=== PATIENT | male | born 1945 | race Caucasian/White ===

== ENCOUNTER 2016-12-17 07:46 | Day surgery (SDC) | payer MEDICARE, OTHER ==
[~2016-12-17 07:46] MED LIST: EPINEPHrine 1:10,000 1 MG/10 ML Syringe ONE; Propofol 200 MG/20 ML SDV ONE
[2016-12-17] MEDS ORDERED: Lactated Ringers 1,000 ML IV SCH (08:00)
[2016-12-17] MEDS ORDERED: Sodium Chloride 0.9% 5 ML Syringe FLUSH PRN (08:00)
[2016-12-17] MEDS ORDERED: Lactated Ringers 1,000 ML ONE (08:31)
[2016-12-17] MEDS ORDERED: Propofol 200 MG/20 ML SDV ONE ×2 (08:31→09:03)
[2016-12-17] MEDS ORDERED: ePHEDrine 50 MG/ML SDV IV ONE (09:03)
[2016-12-17] MEDS ORDERED: ePHEDrine 50 MG/ML SDV ONE (09:03)
[2016-12-17] MEDS ORDERED: Sodium Chloride 0.9% 1,000 ML IV ONE (09:03)
--- NOTE | 2016-12-17 09:56 | PCM.OPNOTE ---
- General Post-Op/Procedure Note Date of Surgery/Procedure: 12/17/16 Operative Procedure(s): Upper and lower GI endoscopy. Anesthesia Technique: MAC Primary Surgeon: Magnolia Godinez Complications: None Condition: Good Free Text/Narrative:: INFORMED CONSENT: Patient is here today for elective upper GI endoscopy. All aspects of this procedure have been discussed with the patient. All possible complications also, including possibility of perforation, infection, pain, bleeding, numbness of the throat, swallowing difficulty and unknown complications. In the event of perforation the patient may need surgical exploration to repair the defect. The patient understands fully well. Patient did not have any further questions for me at the end of my interview. The patient wishes for me to proceed. INSTRUMENT USED: Video gastroscope ANESTHESIA: [MAC] ASA CLASSIFICATION: [2] PROCEDURE PERFORMED: [upper GI endoscopy] PHARYNX: Normal. ESOPHAGUS: Normal. Proximal: Normal. Middle: Normal. Lower: Normal. GE Junction: Normal. STOMACH: Normal. Cardia: A moderate size hiatal hernia without inflammation or changes of reflux was observed. Fundus: Normal. Lesser Curvature: Normal. Greater Curvature: Normal. Antrum: Normal. Pylorus: Normal. DUODENUM: Normal. First Part: Normal. Second Part: Normal. Third Part: Normal. RETROFLEXION: Normal. BIOPSY: None. TOLERANCE: Excellent. COMPLICATIONS: None. INFORMED CONSENT: Patient is here today for elective colonoscopy. All aspects of this procedure have been discussed with the patient. All possible complications also, including possibility of perforation, infection, pain, bleeding and unknown complications. In the event of perforation patient may need to have abdominal exploration, colon resection, colostomy and even was discussed. Anesthetic complications were handled by anesthesia department. The patient understands fully well. Patient did not have any further questions for me at the end of my interview. The patient wishes for me to proceed. PREOPERATIVE DIAGNOSIS/INDICATIONS: [persistent right lower quadrant pain and rectal] POSTOPERATIVE DIAGNOSIS: [Possible colitis of the cecum and a redundant colon] INSTRUMENT USED: [employer] videocolonoscope. ASA CLASSIFICATION: [2] ANESTHESIA: Continuous EKG, oximetry and intermittent blood pressure and respiratory monitoring were performed throughout the procedure. IV Versed and Fentanyl were administered. PROCEDURE PERFORMED: Colonoscopy POSITIONS OF PATIENT: Left lateral. RECTUM: Normal. SIGMOID COLON: Normal. DESCENDING COLON: Normal. SPLENIC FLEXURE: Normal. TRANSVERSE COLON: Normal. HEPATIC FLEXURE: Normal. ASCENDING COLON: Normal. CECUM: the mucosa was generally inflamed. Biopsies were taken using the cold biopsy forceps.. ILEOCECAL VALVE: Normal. BIOPSY: None. TOLERANCE: Excellent. COMPLICATIONS: None.
[2016-12-17 11:33] VITALS: BP 143/79
== END 2016-12-17 11:20 | disposition home or self-care (01) ==
LOC: KA.SDS 07:46
PROVIDERS: ATTEND Family Medicine
DX: K44.9 Diaphragmatic hernia without obstruction or gangrene (principal); K55.9 Vascular disorder of intestine, unspecified; K21.9 Gastro-esophageal reflux disease without esophagitis; E03.9 Hypothyroidism, unspecified; I10 Essential (primary) hypertension; Z79.82 Long term (current) use of aspirin; Z79.899 Other long term (current) drug therapy; Z98.890 Other specified postprocedural states
CPT/HCPCS: 43235; 45380; J2704; J7030; J7120; 00740; 00810; 88305

== ENCOUNTER 2017-01-22 02:35 | Inpatient (IN) | payer MEDICARE, OTHER, MEDICAID ==
[2017-01-22] MEDS ORDERED: Sodium Chloride 0.9% 5 ML Syringe FLUSH PRN (03:05)
[2017-01-22] MEDS ORDERED: Sodium Chloride 0.9% 1,000 ML IV STA (03:05)
[2017-01-22] MEDS ORDERED: Morphine 2 MG/ML Syringe IVPUSH ONE (03:07)
--- NOTE | 2017-01-22 03:15 | EDM.PDOC ---
ED HPI GI/ABDOMINAL - General Chief Complaint: Abdominal Pain Stated Complaint: abd pain Time Seen by Provider: 01/22/17 03:00 Source of Information: Reports: Patient, EMS History Limitations: Reports: No limitations - History of Present Illness INITIAL COMMENTS - FREE TEXT/NARRATIVE: PT STATES HE HAS BEEN HAVING INTERMITTENT ABD PAIN AND BLACK STOOLS FOR A FEW WEEKS. BECAME WORSE DURING NIGHT AND CONTACTED EMS. DENIES N/V, TRAUMA, OR CP. H /O COPD AND CHRONIC SOB. Timing/Duration: Reports: Intermittent Location: generalized Quality: Reports: ache, other (SHARP) Associated Symptoms: Reports: constipation. Denies: back pain, testicular pain , groin pain, diarrhea, nausea/vomiting - Related Data Allergies/ADRs: Allergies Allergy/AdvReac Type Severity Reaction Status Date / Time No Known Drug Allergies Allergy Cannot Verified 01/22/17 04:09 Remember Home Meds: Home Meds Albuterol/Ipratropium [DuoNeb 3.0-0.5 MG/3 ML] 3 ml INH TID 07/27/16 [History] Ferrous Gluconate 1 tab PO DAILY 07/27/16 [History] Levothyroxine [Synthroid] 200 mcg PO ACBREAKFAST 07/27/16 [History] Mirtazapine [Remeron] 45 mg PO BEDTIME 07/27/16 [History] Multivitamin [Daily Multiple Vitamin] 1 tab PO DAILY 07/27/16 [History] Omeprazole 40 mg PO DAILY 07/27/16 [History] Oxybutynin Chloride [Ditropan Xl] 15 mg PO DAILY 07/27/16 [History] Sertraline [Zoloft] 200 mg PO DAILY 07/27/16 [History] Tamsulosin [Flomax] 0.4 mg PO DAILY 07/27/16 [History] Aspirin 81 mg PO BRK 08/14/16 [History] Metoprolol Tartrate 12.5 mg PO BID 08/14/16 [History] Mupirocin Oint [Bactroban Oint] 22 gm TOP TID 08/14/16 [History] atorvaSTATin [Lipitor] 20 mg PO BEDTIME 08/14/16 [History] Acetaminophen 1,000 mg PO Q4H PRN 12/16/16 [History] Apixaban [Eliquis] 5 mg PO BID 12/16/16 [History] Magnesium Hydroxide [Milk of Magnesia] 15 ml PO BID PRN 12/16/16 [History] Sennosides/Docusate Sodium [Sennosides-Docusate Sodium] 1 each PO BID 12/16/16 [ History] Triamcinolone Acetonide [Triamcinolone Acetonide 0.1% Oint] 15 gm TOP DAILY [History] Past Medical History HEENT History: Reports: Cataract, Impaired vision Cardiovascular History: Reports: Blood clots/VTE/DVT, Heart murmur Respiratory History: Reports: COPD Gastrointestinal History: Reports: GERD, Hiatal hernia, Other (see below) Other Gastrointestinal History: iinguinal hernia Genitourinary History: Reports: Prostate disorder, Retention, urinary, Urinary incontinence, Other (see below) Other Genitourinary History: bladder cancer with radiation Musculoskeletal History: Reports: Arthritis, Back pain, chronic, Fracture, Neck pain, chronic Psychiatric History: Reports: Depression Endocrine/Metabolic History: Reports: Hypothyroidism Hematologic History: Reports: Anemia, Blood transfusion(s), Iron deficiency Oncologic (Cancer) History: Reports: Bladder Other Oncologic History: radiation for bladder cancer Dermatologic History: Reports: Other (see below) Other Dermatologic History: sores all over body - Infectious Disease History Infectious Disease History: Reports: MRSA - Past Surgical History HEENT Surgical History: Reports: Cataract surgery GI Surgical History: Reports: Appendectomy, Hernia, inguinal Male Surgical History: Reports: TURBT-Transurethral resection of bladder tumor Musculoskeletal Surgical History: Reports: Knee replacement, Other (see below) Other Musculoskeletal Surgeries/Procedures:: right foot fused, right hip pinning , left knee replacement, rods in the back Social & Family History - Family History Family Medical History: Unobtainable Endocrine/Metabolic: Reports: Diabetes, type II - Tobacco Use Smoking Status *Q: Current Every Day Smoker Years of Tobacco use: 50 Packs/Tins Daily: 0.2 Used Tobacco, but Quit: No Second Hand Smoke Exposure: No - Caffeine Use Caffeine Use: Reports: Coffee Caffeine Use Comment: uses coffee throughout day - Alcohol Use Days Per Week of Alcohol Use: 1 Number of Drinks Per Day: 1 Total Drinks Per Week: 1 - Recreational Drug Use Recreational Drug Use: No ED ROS GENERAL - Review of Systems Review Of Systems: ROS reveals no pertinent complaints other than HPI. Constitutional: Reports: no symptoms HEENT: Reports: No symptoms Respiratory: Reports: Shortness of Breath, Cough Cardiovascular: Reports: No symptoms Endocrine: Reports: no symptoms GI/Abdominal: Reports: Abdominal pain, Constipation : Reports: no symptoms Musculoskeletal: Reports: no symptoms Skin: Reports: no symptoms Neurological: Reports: No Symptoms Psychiatric: Reports: No symptoms Hematologic/Lymphatic: Reports: no symptoms Immunologic: Reports: no symptoms ED EXAM, GI/ABD - Physical Exam Exam: See Below Exam Limited By: No limitations General Appearance: alert, WD/WN, no apparent distress Eyes: bilateral: normal appearance Nose: normal inspection, normal mucosa, no blood Throat/Mouth: Normal inspection, Normal oropharynx, No airway compromise Head: atraumatic, normocephalic Neck: normal inspection, supple Respiratory/Chest: no respiratory distress, decreased breath sounds Cardiovascular: regular rate, rhythm, no murmur GI/Abdominal: normal bowel sounds, soft, tenderness (DIFFUSELY) (Male) Exam: No hernia Back Exam: normal inspection. No: CVA tenderness (L), CVA tenderness (R) Extremities: normal inspection, non-tender Neurological: alert, oriented, normal cognition Psychiatric: normal affect, normal mood Skin Exam: Warm, Dry, Normal color, Other (MULTIPLE EXCORIATIONS / WOUNDS TO UPPER AND LOWER EXTREMITIES) Lymphatic: no adenopathy Course - Vital Signs Last Recorded V/S: Last Vital Signs Temp 101.1 F H 01/22/17 03:54 Pulse 103 H 01/22/17 02:46 Resp 28 H 01/22/17 02:46 BP 104/59 L 01/22/17 02:46 Pulse Ox 93 L 01/22/17 02:46 - Orders/Labs/Meds Orders: Active Orders 24 hr Category Date Time Status Peripheral IV Care [RC] . DIRECTED Care 01/22/17 03:06 Active Abdomen Pelvis w Cont [CT] Stat Exams 01/22/17 03:05 Taken Chest 2V [CR] Stat Exams 01/22/17 03:05 Taken CULTURE BLOOD [BC] Stat Lab 01/22/17 04:40 Received CULTURE BLOOD [BC] Stat Lab 01/22/17 04:50 Received Sodium Chloride 0.9% [Syrex Flush] Med 01/22/17 03:05 Active 5 ml FLUSH Q8HR PRN Blood Culture x2 Reflex Set [OM.PC] Stat Oth 01/22/17 03:45 Ordered Peripheral IV Insertion Adult [OM.PC] Stat Ot 01/22/17 03:05 Ordered Medication Orders Sodium Chloride (Syrex Flush) 5 ml FLUSH Q8HR PRN PRN Reason: Keep Vein Open Labs: Laboratory Tests 01/22/17 01/22/17 01/22/17 Range/Units 02:45 02:45 02:45 WBC 15.3 H (5.0-10.0) 10^3/uL RBC 3.74 L (4.50-6.00) 10^6/uL Hgb 10.9 L (13.0-17.0) g/dL Hct 32.2 L (40.0-52.0) % MCV 86.0 (82.0-92.0) fL MCH 29.2 (27.0-31.0) pg MCHC 33.9 (32.0-36.0) g/dL RDW 12.8 (11.5-14.5) % Plt Count 277 (150-300) 10^3/uL MPV 7.7 (7.4-10.4) fL Neut % (Auto) 92.6 H (50.0-70.0) % Lymph % (Auto) 2.2 L (20.0-40.0) % [place] % (Auto) 4.9 (2.0-8.0) % Eos % (Auto) 0.3 L (1.0-3.0) % Baso % (Auto) 0.0 (0.0-1.0) % Neut # (Auto) 14.3 H (2.5-7.0) 10^3/uL Lymph # (Auto) 0.3 L (1.0-4.0) 10^3/uL [place] # (Auto) 0.7 (0.1-0.8) 10^3/uL Eos # (Auto) 0.0 L (0.1-0.3) 10^3/uL Baso # (Auto) 0.0 (0.0-0.1) 10^3/uL PT 11.0 (8.9-11.4) SEC INR 1.1 (0.9-1.1) APTT 33.0 H (20.8-31.2) SEC Sodium 131 L (136-145) mmol/L Potassium 4.6 (3.3-5.3) mmol/L Chloride 94 L (98-115) mmol/L Carbon Dioxide 27.0 (21.0-32.0) mmol/L BUN 15 (6-25) mg/dL Creatinine 0.93 (0.51-1.17) mg/dL Est Cr Clr Drug Dosing 59.46 mL/min Estimated GFR (MDRD) > 60 mL/min Glucose 118 H (70-110) mg/dL Calcium 8.6 L (8.7-10.3) mg/dL Total Bilirubin 0.6 (0.2-1.0) mg/dL AST 26 (15-37) U/L ALT 17 (12-78) U/L Alkaline Phosphatase 105 (46-116) IU/L Total Protein 7.0 (6.4-8.2) g/dL Albumin 3.18 (3.00-4.80) g/dL Amylase 39 (25-125) U/L Lipase 48 L (73-393) U/L Specimen Type Urine Color (YELLOW) Urine Appearance (CLEAR) Urine pH (5.0-9.0) Ur Specific [place] (1.005-1.030) Urine Protein (NEGATIVE) mg/dL Urine Glucose (UA) (NEGATIVE) mg/dL Urine Ketones (NEGATIVE) mg/dL Urine Occult Blood (NEGATIVE) Urine Nitrite (NEGATIVE) Urine Bilirubin (NEGATIVE) Urine Urobilinogen (0.2-1.0) E.U./dL Ur Leukocyte Esterase (NEGATIVE) Urine RBC /HPF Urine WBC /HPF Ur Epithelial Cells /LPF Urine Bacteria (NONE TO FEW) /HPF 01/22/17 Range/Units 03:45 WBC (5.0-10.0) 10^3/uL RBC (4.50-6.00) 10^6/uL Hgb (13.0-17.0) g/dL Hct (40.0-52.0) % MCV (82.0-92.0) fL MCH (27.0-31.0) pg MCHC (32.0-36.0) g/dL RDW (11.5-14.5) % Plt Count (150-300) 10^3/uL MPV (7.4-10.4) fL Neut % (Auto) (50.0-70.0) % Lymph % (Auto) (20.0-40.0) % [place] % (Auto) (2.0-8.0) % Eos % (Auto) (1.0-3.0) % Baso % (Auto) (0.0-1.0) % Neut # (Auto) (2.5-7.0) 10^3/uL Lymph # (Auto) (1.0-4.0) 10^3/uL [place] # (Auto) (0.1-0.8) 10^3/uL Eos # (Auto) (0.1-0.3) 10^3/uL Baso # (Auto) (0.0-0.1) 10^3/uL PT (8.9-11.4) SEC INR (0.9-1.1) APTT (20.8-31.2) SEC Sodium (136-145) mmol/L Potassium (3.3-5.3) mmol/L Chloride (98-115) mmol/L Carbon Dioxide (21.0-32.0) mmol/L BUN (6-25) mg/dL Creatinine (0.51-1.17) mg/dL Est Cr Clr Drug Dosing mL/min Estimated GFR (MDRD) mL/min Glucose (70-110) mg/dL Calcium (8.7-10.3) mg/dL Total Bilirubin (0.2-1.0) mg/dL AST (15-37) U/L ALT (12-78) U/L Alkaline Phosphatase (46-116) IU/L Total Protein (6.4-8.2) g/dL Albumin (3.00-4.80) g/dL Amylase (25-125) U/L Lipase (73-393) U/L Specimen Type [place] Urine Color Yellow (YELLOW) Urine Appearance Clear (CLEAR) Urine pH 7.5 (5.0-9.0) Ur Specific [place] 1.015 (1.005-1.030) Urine Protein 30 H (NEGATIVE) mg/dL Urine Glucose (UA) Negative (NEGATIVE) mg/dL Urine Ketones Negative (NEGATIVE) mg/dL Urine Occult Blood Negative (NEGATIVE) Urine Nitrite Negative (NEGATIVE) Urine Bilirubin Negative (NEGATIVE) Urine Urobilinogen 0.2 (0.2-1.0) E.U./dL Ur Leukocyte Esterase Negative (NEGATIVE) Urine RBC 0-5 /HPF Urine WBC Not seen /HPF Ur Epithelial Cells Rare /LPF Urine Bacteria Not seen (NONE TO FEW) /HPF Meds: Medications Generic Name Dose Route Start Last Admin Trade Name Freq PRN Reason Stop Dose Admin Sodium Chloride 5 ml 01/22/17 03:05 Syrex Flush FLUSH Q8HR PRN Keep Vein Open Discontinued Medications Generic Name Dose Route Start Last Admin Trade Name Freq PRN Reason Stop Dose Admin Acetaminophen 650 mg 01/22/17 03:29 01/22/17 03:54 Tylenol PO 01/22/17 03:30 650 mg NOW ONE Administration Sodium Chloride 1,000 mls @ 1,000 mls/hr 01/22/17 03:05 01/22/17 03:54 Normal Saline IV 01/22/17 04:04 1,000 mls/hr .BOLUS STA Administration Iopamidol 75 ml 01/22/17 03:34 01/22/17 04:35 Isovue-300 (61%) IV 01/22/17 03:35 75 ml . DIRECTED PRN Administration FOR RADIOLOGY EXAM Morphine Sulfate 2 mg 01/22/17 03:07 Morphine IVPUSH 01/22/17 03:08 ONETIME ONE Sodium Chloride 50 ml 01/22/17 03:45 01/22/17 04:35 Normal Saline FLUSH 01/22/17 03:46 50 ml ONETIME ONE Administration - Radiology Interpretation Free Text/Narrative:: CXR NEGATIVE FOR ACUTE PROCESS CT ABD /PELVIS SHOWS RIGHT SIDED COLITIS / HIATAL HERNIA CT Results Date: 01/22/17 - Re-Assessments/Exams Free Text/Narrative Re-Assessment/Exam: 01/22/17 05:37 PT AFEBRILE, NONTOXIC APPEARING, DISCOMFORT RESOLVED. DISCUSSED CASE WITH DR LOPEZ , WILL ADMIT INPATIENT AND FOLLOW Departure - Departure Time of Disposition: 05:41 Disposition: Admitted As Inpatient 64 Condition: fair Clinical Impression: Colitis Abdominal pain Qualifiers: Abdominal location: right lower quadrant Qualified Code(s): R10.31 - Right lower quadrant pain Forms: ED Department Discharge - My Orders Last 24 Hours: My Active Orders 01/22/17 03:05 Abdomen Pelvis w Cont [CT] Stat Chest 2V [CR] Stat Sodium Chloride 0.9% [Syrex Flush] 5 ml FLUSH Q8HR PRN Peripheral IV Insertion Adult [OM.PC] Stat 01/22/17 03:06 Peripheral IV Care [RC] . DIRECTED 01/22/17 03:45 Blood Culture x2 Reflex Set [OM.PC] Stat 01/22/17 04:40 CULTURE BLOOD [BC] Stat 01/22/17 04:50 CULTURE BLOOD [BC] Stat - Assessment/Plan Last 24 Hours: My Active Orders 01/22/17 03:05 Abdomen Pelvis w Cont [CT] Stat Chest 2V [CR] Stat Sodium Chloride 0.9% [Syrex Flush] 5 ml FLUSH Q8HR PRN Peripheral IV Insertion Adult [OM.PC] Stat 01/22/17 03:06 Peripheral IV Care [RC] . DIRECTED 01/22/17 03:45 Blood Culture x2 Reflex Set [OM.PC] Stat 01/22/17 04:40 CULTURE BLOOD [BC] Stat 01/22/17 04:50 CULTURE BLOOD [BC] Stat Assessment:: COLITIS Plan: INPATIENT ADMIT TO DR LOPEZ
[2017-01-22] MEDS ORDERED: Acetaminophen 325 MG Tab PO ONE (03:29)
[2017-01-22] MEDS ORDERED: Iopamidol 612 MG/ML 75 ML Bottle IV PRN (03:34)
[2017-01-22] MEDS ORDERED: Sodium Chloride 0.9% 50 ML SDV FLUSH ONE (03:45)
[2017-01-22 03:51] LABS: CHLORIDE,CL 94 mmol/L (98-115); SODIUM,NA 131 mmol/L (136-145)
[2017-01-22] MEDS ORDERED: Ciprofloxacin in D5W 400 MG in Premix Bag 1 BAG IV ONE ×2 (05:39)
[2017-01-22] MEDS ORDERED: metroNIDAZOLE/Normal Saline 500 MG in Premix Bag 1 BAG IV ONE (05:39)
[2017-01-22] MEDS ORDERED: Magnesium Hydroxide 400 MG/5 ML Susp 30 ML Cup PO PRN (13:48)
[2017-01-22] MEDS ORDERED: Acetaminophen 500 MG Tab PO PRN (13:48)
[2017-01-22] MEDS ORDERED: Albuterol/Ipratropium 3.0-0.5 MG/3 ML Neb Soln INH PRN (14:00)
--- NOTE | 2017-01-22 14:00 | PCM.HP ---
H&P History of Present Illness - General Date of Service: 01/22/17 Admit Problem/Dx: Admission Diagnosis/Problem Admission Diagnosis/Problem Colitis Source of Information: Patient, Old records, Provider, RN History Limitations: Reports: No limitations - History of Present Illness Initial Comments - Free Text/Narative: 71-year-old gentleman was admitted through the ED early this morning complaining of some abdominal pain and black stools seem to have become worse during the night. No vomiting no nausea no chest pain. He recent had a colonoscopy and endoscopic scope back in November due to also having some black stools and epigastric lizeth in which the patient did report improving stools and less darkness. Abdomen and pelvis CT with contrast showed patient does have colitis of the cecum and ascending colon, small amount associated free fluid however no abscess or pneumatosis or free air. Checks x-ray was good with no acute process. He was admitted for IV antibiotics and closer monitoring. Abdominal Pain Score (Numeric/FACES): 0 - Related Data Allergies/Adverse Reactions: Allergies Allergy/AdvReac Type Severity Reaction Status Date / Time No Known Drug Allergies Allergy Cannot Verified 01/22/17 04:09 Remember Home Medications: Home Meds Albuterol/Ipratropium [DuoNeb 3.0-0.5 MG/3 ML] 3 ml INH TID 07/27/16 [History] Ferrous Gluconate 1 tab PO DAILY 07/27/16 [History] Levothyroxine [Synthroid] 200 mcg PO ACBREAKFAST 07/27/16 [History] Mirtazapine [Remeron] 45 mg PO BEDTIME 07/27/16 [History] Multivitamin [Daily Multiple Vitamin] 1 tab PO DAILY 07/27/16 [History] Omeprazole 40 mg PO DAILY 07/27/16 [History] Oxybutynin Chloride [Ditropan Xl] 15 mg PO DAILY 07/27/16 [History] Sertraline [Zoloft] 200 mg PO DAILY 07/27/16 [History] Tamsulosin [Flomax] 0.4 mg PO DAILY 07/27/16 [History] Aspirin 81 mg PO BRK 08/14/16 [History] Metoprolol Tartrate 12.5 mg PO BID 08/14/16 [History] Mupirocin Oint [Bactroban Oint] 22 gm TOP TID 08/14/16 [History] atorvaSTATin [Lipitor] 20 mg PO BEDTIME 08/14/16 [History] Acetaminophen 1,000 mg PO Q4H PRN 12/16/16 [History] Apixaban [Eliquis] 5 mg PO BID 12/16/16 [History] Magnesium Hydroxide [Milk of Magnesia] 15 ml PO BID PRN 12/16/16 [History] Sennosides/Docusate Sodium [Sennosides-Docusate Sodium] 1 each PO BID 12/16/16 [ History] Triamcinolone Acetonide [Triamcinolone Acetonide 0.1% Oint] 15 gm TOP DAILY [History] Past Medical History HEENT History: Reports: Cataract, Impaired vision Cardiovascular History: Reports: Blood clots/VTE/DVT, Heart murmur Respiratory History: Reports: COPD Gastrointestinal History: Reports: GERD, Hiatal hernia, Other (see below) Other Gastrointestinal History: iinguinal hernia Genitourinary History: Reports: Prostate disorder, Retention, urinary, Urinary incontinence, Other (see below) Other Genitourinary History: bladder cancer with radiation Musculoskeletal History: Reports: Arthritis, Back pain, chronic, Fracture, Neck pain, chronic Psychiatric History: Reports: Depression Endocrine/Metabolic History: Reports: Hypothyroidism Hematologic History: Reports: Anemia, Blood transfusion(s), Iron deficiency Oncologic (Cancer) History: Reports: Bladder Other Oncologic History: radiation for bladder cancer Dermatologic History: Reports: Other (see below) Other Dermatologic History: sores all over body - Infectious Disease History Infectious Disease History: Reports: MRSA - Past Surgical History HEENT Surgical History: Reports: Cataract surgery GI Surgical History: Reports: Appendectomy, Hernia, inguinal Male Surgical History: Reports: TURBT-Transurethral resection of bladder tumor Musculoskeletal Surgical History: Reports: Knee replacement, Other (see below) Other Musculoskeletal Surgeries/Procedures:: right foot fused, right hip pinning , left knee replacement, rods in the back Social & Family History - Family History Family Medical History: Unobtainable HEENT: Reports: None Cardiac: Reports: Aneurysm (Mother cerebral hemorrhage,), Other (see below ) (One brother of coronary artery disease and heart disease) Respiratory: Reports: None GI: Reports: None : Reports: None OBGYN: Reports: None Musculoskeletal: Reports: None Neurological: Reports: None Psychiatric: Reports: None Endocrine/Metabolic: Reports: Diabetes, type II Hematologic: Reports: None Immunologic: Reports: None Dermatologic: Reports: None Oncologic: Reports: Bone (Father bone CA) - Tobacco Use Smoking Status *Q: Current Every Day Smoker Years of Tobacco use: 50 Packs/Tins Daily: 0.2 Used Tobacco, but Quit: No Second Hand Smoke Exposure: No - Caffeine Use Caffeine Use: Reports: Coffee Caffeine Use Comment: uses coffee throughout day - Alcohol Use Days Per Week of Alcohol Use: 1 Number of Drinks Per Day: 1 Total Drinks Per Week: 1 - Recreational Drug Use Recreational Drug Use: No H&P Review of Systems - Review of Systems: Review Of Systems: See Below General: Reports: fever HEENT: Reports: no symptoms Pulmonary: Reports: No Symptoms Cardiovascular: Reports: no symptoms Gastrointestinal: Reports: Abdominal pain, Black stool Musculoskeletal: Reports: no symptoms Psychiatric: Reports: no symptoms Neurological: Reports: No Symptoms Hematologic/Lymphatic: Reports: anemia Exam - Exam Exam: See Below - Vital Signs Vital Signs: Last Vital Signs Temp 97 F 01/22/17 11:00 Pulse 65 01/22/17 11:00 Resp 14 01/22/17 11:00 BP 134/67 01/22/17 11:00 Pulse Ox 100 01/22/17 11:00 Weight: 125 lb 5 oz - Exam Quality Assessment: No: supplemental oxygen General: alert, oriented, cooperative. No: mild distress HEENT: Mucosa moist & pink Neck: supple, trachea midline, 2 Lungs: Clear to auscultation, Normal respiratory effort Cardiovascular: regular rate, regular rhythm Abdomen: hypoactive bowel sounds (Male) Exam: No hernia, Normal inspection, Normal prostate, Circumcised Skin: other (Multiple bruises upper extremities excoriations) Neurological: cranial nerves intact Neuro Extensive - Mental Status: alert (Grossly), oriented x3, memory intact Neuro Extensive - Motor, Sensory, Reflexes: CN II-XII intact Psychiatric: alert, normal affect, normal mood - Patient Data Result Diagrams: 01/22/17 02:45 01/22/17 02:45 *Q Meaningful Use (ADM) - VTE *Q VTE Criteria *Q: - Stroke *Q Stroke Criteria *Q: - AMI *Q AMI Criteria *Q: Problem List Initiated/Reviewed/Updated: Yes Orders Last 24hrs: Active Orders 24 hr Category Date Time Status Dietary Supplements [RC] ACBED Care 01/22/17 12:44 Active BASIC METABOLIC PANEL,BMP [CHEM] AM Lab 01/23/17 05:11 Ordered CBC WITH AUTO DIFF [HEME] AM Lab 01/23/17 05:11 Ordered Acetaminophen [Tylenol Extra Strength] Med 01/22/17 13:48 Ordered 1,000 mg PO Q4H PRN Albuterol/Ipratropium [DuoNeb 3.0-0.5 MG/3 ML] Med 01/22/17 14:00 Ordered 3 ml INH TID Apixaban [Eliquis] Med 01/22/17 14:00 Ordered 5 mg PO BID Aspirin Med 01/22/17 14:00 Ordered 81 mg PO BRK Docusate Sodium/Sennosides [Senna Plus] Med 01/22/17 21:00 Ordered 1 each PO BID Ferrous Gluconate Med 01/23/17 09:00 Ordered 1 tab PO DAILY Levothyroxine [Synthroid] Med 01/23/17 07:00 Ordered 200 mcg PO ACBREAKFAST Magnesium Hydroxide [Milk of Magnesia] Med 01/22/17 13:48 Ordered 15 ml PO BID PRN Metoprolol Tartrate [Lopressor] Med 01/22/17 14:00 Ordered 12.5 mg PO BID Mirtazapine [Remeron] Med 01/22/17 21:00 Ordered 45 mg PO BEDTIME Mupirocin Oint [Bactroban Oint] Med 01/22/17 14:00 Ordered 22 gm TOP TID Omeprazole Med 01/23/17 09:00 Ordered 40 mg PO DAILY Oxybutynin Chloride [Ditropan Xl] Med 01/22/17 14:00 Ordered 15 mg PO DAILY Sertraline [Zoloft] Med 01/22/17 14:00 Ordered 200 mg PO DAILY Tamsulosin [Flomax] Med 01/23/17 09:00 Ordered 0.4 mg PO DAILY Triamcinolone Acetonide [Triamcinolone Acetonide 0.1% Med 01/23/17 09:00 Ordered Oint] 15 gm TOP DAILY atorvaSTATin [Lipitor] Med 01/22/17 21:00 Ordered 20 mg PO BEDTIME Resuscitation Status Routine Resus Stat 01/22/17 05:40 Ordered Medication Orders Acetaminophen (Tylenol Extra Strength) 1,000 mg PO Q4H PRN PRN Reason: Pain (moderate 4-6) Albuterol/Ipratropium (Duoneb 3.0-0.5 Mg/3 Ml) 3 ml INH TID LILA Apixaban (Eliquis) 5 mg PO BID LILA Aspirin (Aspirin) 81 mg PO BRK LILA Ferrous Gluconate (Ferrous Gluconate) mg PO DAILY [facility] Levothyroxine Sodium (Synthroid) 200 mcg PO ACBREAKFAST LILA Magnesium Hydroxide (Milk Of Magnesia) 15 ml PO BID PRN PRN Reason: Constipation Metoprolol Tartrate (Lopressor) 12.5 mg PO BID [facility] Mupirocin (Bactroban Oint) 22 gm TOP TID [facility] Non-Formulary Medication (Mirtazapine [Remeron]) 45 mg PO BEDTIME LILA Non-Formulary Medication (Oxybutynin Chloride [Ditropan Xl]) 15 mg PO DAILY [facility] Non-Formulary Medication (Sertraline [Zoloft]) 200 mg PO DAILY [facility] Non-Formulary Medication (Atorvastatin [Lipitor]) 20 mg PO BEDTIME LILA Omeprazole (Omeprazole) 40 mg PO DAILY LILA Senna/Docusate Sodium (Senna Plus) tab PO BID [facility] Sodium Chloride (Syrex Flush) 5 ml FLUSH Q8HR PRN PRN Reason: Keep Vein Open Tamsulosin HCl (Flomax) 0.4 mg PO DAILY [facility] Triamcinolone Acetonide (Triamcinolone Acetonide 0.1% Oint) 15 gm TOP DAILY [facility] Assessment/Plan Comment:: History OF PRESENT ILLNESS 71-year-old gentleman was admitted through the ED early this morning complaining of some abdominal pain and black stools seem to have become worse during the night. No vomiting no nausea no chest pain. He recent had a colonoscopy and endoscopic scope back in November due to also having some black stools and epigastric lizeth in which the patient did report improving stools and less darkness. Patient is a resident of [facility] in [facility] Abdomen and pelvis CT with contrast showed patient does have colitis of the cecum and ascending colon, small amount associated free fluid however no abscess or pneumatosis or free air. Checks x-ray was good with no acute process. He was admitted for IV antibiotics and closer monitoring. CODE STATUS, DO NOT RESUSCITATE IMPRESSION/PLAN Colitis, descending and cecum, ciprofloxacin, IV fluids, Chronic medical conditions COPD, stable Hx of bladder cancer & prostate cancer; Has radiotherapy for prostate cancer. He used to self-cath IN/OUT however he stopped on his own. Recently underwent cystoscopy in [place]. Neurogenic bladder Hyothyroidism, stable GERD
[2017-01-22] MEDS: Oxybutynin 5 MG Tab.ER PO SCH (14:35)
[2017-01-22] MEDS: Sertraline 50 MG Tab PO SCH (14:35)
[2017-01-22] MEDS: Apixaban 5 MG Tab PO SCH ×3 (14:35→20:55)
[2017-01-22] MEDS: Aspirin 81 MG Tab.Chew PO SCH (14:35)
[2017-01-22] MEDS: Tamsulosin 0.4 MG Cap.ER PO SCH (14:36)
[2017-01-22] MEDS: Levothyroxine 100 MCG Tab PO SCH (14:36)
[2017-01-22] MEDS: Mupirocin Oint 22 GM Tube TOP SCH ×2 (17:48→20:55)
[2017-01-22] MEDS: Metoprolol Tartrate 25 MG Tab PO SCH (18:16)
[2017-01-22] MEDS ORDERED: Mirtazapine 15 MG Tab PO SCH (21:00)
[2017-01-22] MEDS ORDERED: Ferrous Sulfate 325 MG Tab PO SCH (21:00)
[2017-01-22] MEDS ORDERED: atorvaSTATin 10 MG Tab PO SCH (21:00)
[2017-01-23] MEDS: Levothyroxine 100 MCG Tab PO SCH (06:11)
[2017-01-23] MEDS ORDERED: Omeprazole 20 MG Cap.CR PO SCH (07:00)
[2017-01-23 07:43] LABS: CHLORIDE,CL 97 mmol/L (98-115); SODIUM,NA 133 mmol/L (136-145)
[2017-01-23] MEDS: Sertraline 50 MG Tab PO SCH (08:13)
[2017-01-23] MEDS: Oxybutynin 5 MG Tab.ER PO SCH (08:13)
[2017-01-23] MEDS: Aspirin 81 MG Tab.Chew PO SCH (08:14)
[2017-01-23] MEDS: Metoprolol Tartrate 25 MG Tab PO SCH (08:14)
[2017-01-23] MEDS: Apixaban 5 MG Tab PO SCH (08:14)
[2017-01-23] MEDS: Mupirocin Oint 22 GM Tube TOP SCH (08:14)
[2017-01-23] MEDS: Tamsulosin 0.4 MG Cap.ER PO SCH (08:14)
[2017-01-23] MEDS ORDERED: Triamcinolone Acetonide 0.1% Oint 15 GM Tube TOP SCH (09:00)
[2017-01-23] MEDS ORDERED: Loratadine 10 MG Tab PO SCH (09:00)
[2017-01-23 10:52] VITALS: BP 99/64
--- NOTE | 2017-01-26 08:06 | DISCH ---
He was admitted inpatient 01/22/2017. Discharged from inpatient 01/23/2017. FINAL DIAGNOSIS: Colitis of the descending and cecum, much improved clinically. CHRONIC MEDICAL CONDITIONS: Include: 1. Chronic obstructive pulmonary disease. 2. History of bladder cancer and prostate carcinoma. Had underwent radiotherapy for prostate carcinoma. 3. Neurogenic bladder. 4. Hypothyroidism. 5. Gastroesophageal reflux disease. HISTORY OF PRESENT ILLNESS: This 71-year-old gentleman came to the ED with some abdominal pain, black stools, seem to be becoming worse during the night. No vomiting. No chest pain. No nausea. He did recently had a colonoscopy and an endoscopy back in November due to having some black stools and also he was having some epigastric pain at that time. 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 The patient is a resident of [facility] in [place], [place]. Abdominal and pelvic CT with contrast showed the patient to have colitis of the cecum and ascending colon. He did have a small amount of associated free fluid, however, no abscess, no pneumatosis or free air. Chest x-ray was good without any acute process. He was admitted for IV antibiotics and close monitoring. CODE STATUS: The patient was a DNR. HOSPITAL COURSE: Hospital course went well. He did receive a one-time dose of ciprofloxacin and Flagyl while in the hospital. His white count did go down from 15,000 to 12.9. Neutrophils shifting back to the right high around 93% on admission, down to 84% on discharge. He did not have any reactive thrombocytosis. His INR was 1.1. He is on Eliquis. Sodium was a little low 131, felt it was hypotonic in nature. It did come up to 133. Creatinine clearance around 55 to 59. Glucose 91, calcium 8.4. AST, ALT, alkaline phosphatase, albumin, and amylase were normal. Lipase low. Urinalysis was unremarkable. Microbiology report, blood cultures no growth after one day. VITAL SIGNS ON DISCHARGE: Temperature was 97.1, blood pressure around 100 to 110 systolic, respiratory rate 20, O2 sats 92% to 96%. This is on room air. He did have adequate intake and output. He had some incontinent voids and he had one bowel movement while in hospital. The patient did not have any complications or adverse reactions to medications and/or treatments. He felt much better, much improved on discharge. Stable condition. MEDICATIONS: 1. Cipro 500 mg p.o. b.i.d. (newly added) x7 days. 2. Azulfidine 250 mg daily x7 days, then 250 mg p.o. b.i.d. p.r.n. (newly added). DISPOSITION: The patient will be discharged back to [facility]. He is to report any increasing abdominal pain, tarry stools, diarrhea or blood, or any sort of infection. He will follow up with John ANGEL[facility] in [facility] next week. MEDICAL DECISION MAKIN minutes was spent on this discharge planning, process, and pharmacy consultation. /[id number]/MODL MTDD
== END 2017-01-23 12:00 | disposition home or self-care (01) | DRG 392 ==
LOC: KA.ED 02:35 → KA.MS 05:40
PROVIDERS: ADMIT Family Medicine; ATTEND Family Medicine
DX: R10.31 Right lower quadrant pain (principal); K52.9 Noninfective gastroenteritis and colitis, unspecified; J44.9 Chronic obstructive pulmonary disease, unspecified; Z85.46 Personal history of malignant neoplasm of prostate; Z85.51 Personal history of malignant neoplasm of bladder; N31.9 Neuromuscular dysfunction of bladder, unspecified; N39.498 Other specified urinary incontinence; N42.9 Disorder of prostate, unspecified; R32 Unspecified urinary incontinence; E03.9 Hypothyroidism, unspecified; K21.9 Gastro-esophageal reflux disease without esophagitis; K44.9 Diaphragmatic hernia without obstruction or gangrene; Z66 Do not resuscitate; Z86.718 Personal history of other venous thrombosis and embolism; Z79.01 Long term (current) use of anticoagulants; M19.90 Unspecified osteoarthritis, unspecified site; F32.9 Major depressive disorder, single episode, unspecified; F17.200 Nicotine dependence, unspecified, uncomplicated; D64.9 Anemia, unspecified; D50.9 Iron deficiency anemia, unspecified; Z79.82 Long term (current) use of aspirin; Z79.899 Other long term (current) drug therapy
CPT/HCPCS: 36415; 71020; 74177; 80053; 81001; 82150; 83690; 85025; 85610; 85730; 87040 ×2; 96360; 96361; 99285; A9270; J7030; Q9967; 80048; 87070; 87077; 87186; J0744

== ENCOUNTER 2017-07-24 05:15 | Emergency (ER) | payer MEDICARE, OTHER, MEDICAID ==
--- NOTE | 2017-07-24 06:26 | EDM.PDOC ---
ED HPI GENERAL MEDICAL PROBLEM - General Chief Complaint: Respiratory Problem Stated Complaint: SHORT OF BREATH Time Seen by Provider: 07/24/17 06:11 Source of Information: Reports: Patient, EMS Notes Reviewed History Limitations: Reports: No Limitations - History of Present Illness INITIAL COMMENTS - FREE TEXT/NARRATIVE: PT STATES OVER PAST FEW DAYS HAS DEVELOPED COUGH, CHEST CONGESTION AND SOB. UNDERWENT CYSTOSCOPY 9 DAYS AGO BUT DENIES ABD PAIN OR BLOOD IN URINE. DENIES CP , FALL, FEVER, OR N/V/D. RESIDES IN [facility]IV[facility]AC[facility] Onset: Gradual Duration: Day(s): Location: Reports: Chest Severity: Mild Improves with: Reports: None Worsens with: Reports: None Associated Symptoms: Reports: Loss of Appetite, Malaise - Related Data Allergies Allergy/AdvReac Type Severity Reaction Status Date / Time No Known Drug Allergies Allergy Cannot Verified 07/24/17 06:21 Remember Home Meds: Home Meds Albuterol/Ipratropium [DuoNeb 3.0-0.5 MG/3 ML] 3 ml INH TID PRN 07/27/16 [ History] Ferrous Gluconate 324 mg PO BEDTIME 07/27/16 [History] Levothyroxine [Synthroid] 200 mcg PO ACBREAKFAST 07/27/16 [History] Mirtazapine [Remeron] 45 mg PO BEDTIME 07/27/16 [History] Multivitamin [Daily Multiple Vitamin] 1 tab PO BEDTIME 07/27/16 [History] Omeprazole 40 mg PO ACBREAKFAST 07/27/16 [History] Oxybutynin Chloride [Ditropan Xl] 15 mg PO DAILY 07/27/16 [History] Sertraline [Zoloft] 200 mg PO DAILY 07/27/16 [History] Tamsulosin [Flomax] 0.4 mg PO DAILY 07/27/16 [History] Metoprolol Tartrate 12.5 mg PO BID 08/14/16 [History] Mupirocin Oint [Bactroban Oint] 22 gm TOP TID 08/14/16 [History] atorvaSTATin [Lipitor] 20 mg PO BEDTIME 08/14/16 [History] Acetaminophen 1,000 mg PO TID PRN 12/16/16 [History] Apixaban [Eliquis] 5 mg PO BID 12/16/16 [History] Sennosides/Docusate Sodium [Sennosides-Docusate Sodium] 1 each PO BID 12/16/16 [ History] Triamcinolone Acetonide [Triamcinolone Acetonide 0.1% Oint] 15 gm TOP DAILY [History] Loratadine 10 mg PO DAILY 01/22/17 [History] Cephalexin [Keflex] 500 mg PO TID #21 cap 07/24/17 [Rx] Past Medical History HEENT History: Reports: Cataract, Impaired Vision Cardiovascular History: Reports: Blood Clots/VTE/DVT, Heart Murmur Respiratory History: Reports: COPD Gastrointestinal History: Reports: GERD, Hiatal Hernia, Other (See Below) Other Gastrointestinal History: iinguinal hernia Genitourinary History: Reports: Prostate Disorder, Retention, Urinary, Urinary Incontinence, Other (See Below) Other Genitourinary History: bladder cancer with radiation Musculoskeletal History: Reports: Arthritis, Back Pain, Chronic, Fracture, Neck Pain, Chronic Psychiatric History: Reports: Depression Endocrine/Metabolic History: Reports: Hypothyroidism Hematologic History: Reports: Anemia, Blood Transfusion(s), Iron Deficiency Oncologic (Cancer) History: Reports: Bladder Other Oncologic History: radiation for bladder cancer Dermatologic History: Reports: Other (See Below) Other Dermatologic History: sores all over body - Infectious Disease History Infectious Disease History: Reports: MRSA - Past Surgical History HEENT Surgical History: Reports: Cataract Surgery GI Surgical History: Reports: Appendectomy, Hernia, Inguinal Male Surgical History: Reports: TURBT-Transurethral Resection of Bladder Tumor Musculoskeletal Surgical History: Reports: Knee Replacement, Other (See Below) Social & Family History - Family History Family Medical History: Unobtainable HEENT: Reports: None Cardiac: Reports: Aneurysm, Other (See Below) Respiratory: Reports: None GI: Reports: None : Reports: None OBGYN: Reports: None Musculoskeletal: Reports: None Neurological: Reports: None Psychiatric: Reports: None Endocrine/Metabolic: Reports: Diabetes, type II Hematologic: Reports: None Immunologic: Reports: None Dermatologic: Reports: None Oncologic: Reports: Bone (Father bone CA) - Tobacco Use Smoking Status *Q: Current Every Day Smoker Years of Tobacco use: 50 Packs/Tins Daily: 0.2 Used Tobacco, but Quit: No Second Hand Smoke Exposure: No - Caffeine Use Caffeine Use: Reports: Coffee Caffeine Use Comment: uses coffee throughout day - Alcohol Use Days Per Week of Alcohol Use: 1 Number of Drinks Per Day: 1 Total Drinks Per Week: 1 - Recreational Drug Use Recreational Drug Use: No ED ROS GENERAL - Review of Systems Review Of Systems: ROS reveals no pertinent complaints other than HPI. Constitutional: Reports: Malaise, Decreased Appetite HEENT: Reports: No Symptoms Respiratory: Reports: Shortness of Breath, Cough Cardiovascular: Reports: No Symptoms Endocrine: Reports: No Symptoms GI/Abdominal: Reports: No Symptoms : Reports: No Symptoms Musculoskeletal: Reports: No Symptoms Skin: Reports: No Symptoms Neurological: Reports: No Symptoms Psychiatric: Reports: No Symptoms Hematologic/Lymphatic: Reports: No Symptoms Immunologic: Reports: No Symptoms ED EXAM, GENERAL - Physical Exam Exam: See Below Exam Limited By: No Limitations General Appearance: Alert, WD/WN, No Apparent Distress Eye Exam: Bilateral Eye: Normal Inspection Nose: Normal Inspection, Normal Mucosa, No Blood Throat/Mouth: Normal Inspection, Normal Oropharynx, No Airway Compromise Head: Atraumatic, Normocephalic Neck: Normal Inspection, Supple, Non-Tender Respiratory/Chest: No Respiratory Distress, Rales (BIBASILAR) Cardiovascular: Regular Rate, Rhythm, No Murmur GI/Abdominal: Normal Bowel Sounds, Soft, Non-Tender, No Organomegaly, No Distention, No Abnormal Bruit, No Mass Back Exam: Normal Inspection. No: CVA Tenderness (L), CVA Tenderness (R) Extremities: Normal Inspection, No Pedal Edema Neurological: Alert, Oriented, Normal Cognition Psychiatric: Normal Affect, Normal Mood Skin Exam: Warm, Dry, Intact, Normal Color, No Rash Lymphatic: No Adenopathy Course - Orders/Labs/Meds Orders: Active Orders 24 hr Category Date Time Status Chest 2V [CR] Stat Exams 07/24/17 06:06 Ordered CBC WITH AUTO DIFF [HEME] Stat Lab 07/24/17 06:06 Ordered CMP [COMPREHENSIVE METABOLIC PN,CMP] [CHEM] Stat Lab 07/24/17 06:06 Ordered UA W/MICROSCOPIC [URIN] Stat Lab 07/24/17 06:07 Ordered - Radiology Interpretation Free Text/Narrative:: CXR SHOWS BULLOUS EMPHYSEMA WITH SUSPICION FOR POSSIBLE LEFT SIDED PNEUMOTHORAX discussed case with dr whaley following ct chest and there is emphysema without pneumothorax - Re-Assessments/Exams Free Text/Narrative Re-Assessment/Exam: 07/24/17 07:12 PT NONTOXIC APPEARING, ROCEPHIN GIVEN, WILL F/U WITH PCP / UROLOGY Departure - Departure Time of Disposition: 08:25 Disposition: Home, Self-Care 01 Condition: Fair Clinical Impression: UTI (urinary tract infection) Qualifiers: Urinary tract infection type: acute cystitis Hematuria presence: without hematuria Qualified Code(s): N30.00 - Acute cystitis without hematuria Emphysema lung Qualifiers: Emphysema type: unspecified Qualified Code(s): J43.9 - Emphysema, unspecified - Discharge Information Instructions: Shortness of Breath, [id number], Chronic Obstructive Pulmonary Disease Exacerbation, [id number], Urinary Tract Infection, Adult Referrals: PCP,Unobtain [Primary Care Provider] - John Carrasquillo PA-C [Ordering Only Provider] - Additional Instructions: FOLLOW UP WITH PCP IN 2-3 DAYS - My Orders Last 24 Hours: My Active Orders 07/24/17 06:06 Chest 2V [CR] Stat CBC WITH AUTO DIFF [HEME] Stat CMP [COMPREHENSIVE METABOLIC PN,CMP] [CHEM] Stat 07/24/17 06:07 UA W/MICROSCOPIC [URIN] Stat - Assessment/Plan Last 24 Hours: My Active Orders 07/24/17 06:06 Chest 2V [CR] Stat CBC WITH AUTO DIFF [HEME] Stat CMP [COMPREHENSIVE METABOLIC PN,CMP] [CHEM] Stat 07/24/17 06:07 UA W/MICROSCOPIC [URIN] Stat Assessment:: UTI / emphysema Plan: F/U WITH PCP
[2017-07-24] MEDS ORDERED: cefTRIAXone 1 GM Vial IVPUSH ONE (06:42)
[2017-07-24 06:54] LABS: CHLORIDE,CL 104 mmol/L (98-115); SODIUM,NA 140 mmol/L (136-145)
[2017-07-24] MEDS ORDERED: Sodium Chloride 0.9% 1,000 ML IV ONE (07:02)
[2017-07-24] MEDS ORDERED: Acetaminophen 325 MG Tab PO ONE (07:02)
[2017-07-24 08:48] VITALS: BP 136/79
== END 2017-07-24 09:50 | disposition home or self-care (01) ==
LOC: KA.ED 05:15
DX: J43.9 Emphysema, unspecified (principal); N30.00 Acute cystitis without hematuria; F17.210 Nicotine dependence, cigarettes, uncomplicated; Z79.899 Other long term (current) drug therapy
CPT/HCPCS: 36415; 71020; 71250; 80053; 81001; 85025; 87086; 87088; 87186; 96361; 96374; 99285; A9270; J0696; J7030; 99283

== ENCOUNTER 2018-03-23 04:00 | Inpatient (IN) | payer MEDICARE, OTHER, MEDICAID ==
[2018-03-23] MEDS ORDERED: Albuterol/Ipratropium 3.0-0.5 MG/3 ML Neb Soln ONE (04:38)
--- NOTE | 2018-03-23 04:38 | EDM.PDOC ---
ED HPI GENERAL MEDICAL PROBLEM - General Stated Complaint: Short of Breath Time Seen by Provider: 03/23/18 04:24 Source of Information: Reports: Patient History Limitations: Reports: No Limitations - History of Present Illness INITIAL COMMENTS - FREE TEXT/NARRATIVE: Patient presents via ambulance with dyspnea and chest tightness. He has had this going on for a couple weeks but worse tonight. He lives in assisted living and uses a nebulizer at home and sleep with oxygen at 2 liters. He has smoked for nearly 60 years but never more than 1/2 ppd, currently 1.5 cigarettes /day. - Related Data Allergies Allergy/AdvReac Type Severity Reaction Status Date / Time No Known Drug Allergies Allergy Cannot Verified 07/24/17 06:21 Remember Home Meds: Home Meds Albuterol/Ipratropium [DuoNeb 3.0-0.5 MG/3 ML] 3 ml INH Q4H PRN 07/27/16 [ History] Ferrous Gluconate 324 mg PO BEDTIME 07/27/16 [History] Levothyroxine [Synthroid] 200 mcg PO ACBREAKFAST 07/27/16 [History] Mirtazapine [Remeron] 45 mg PO BEDTIME 07/27/16 [History] Multivitamin [Daily Multiple Vitamin] 1 tab PO BEDTIME 07/27/16 [History] Omeprazole 40 mg PO ACBREAKFAST 07/27/16 [History] Oxybutynin Chloride [Ditropan Xl] 15 mg PO DAILY 07/27/16 [History] Sertraline [Zoloft] 200 mg PO DAILY 07/27/16 [History] Tamsulosin [Flomax] 0.4 mg PO DAILY 07/27/16 [History] Metoprolol Tartrate 12.5 mg PO BID 08/14/16 [History] Mupirocin Oint [Bactroban Oint] 22 gm TOP TID 08/14/16 [History] atorvaSTATin [Lipitor] 20 mg PO BEDTIME 08/14/16 [History] Acetaminophen 1,000 mg PO QID PRN 12/16/16 [History] Apixaban [Eliquis] 5 mg PO BID 12/16/16 [History] Sennosides/Docusate Sodium [Sennosides-Docusate Sodium] 1 each PO BID 12/16/16 [ History] Triamcinolone Acetonide [Triamcinolone Acetonide 0.1% Oint] 15 gm TOP DAILY [History] Loratadine 10 mg PO DAILY 01/22/17 [History] Cephalexin [Keflex] 500 mg PO TID #21 cap 07/24/17 [Rx] Past Medical History HEENT History: Reports: Cataract, Impaired Vision Cardiovascular History: Reports: Blood Clots/VTE/DVT, Heart Murmur Respiratory History: Reports: COPD Other Respiratory History: Has been trying to get home oxygen, but does not currently meet requirements. Gastrointestinal History: Reports: GERD, Hiatal Hernia, Other (See Below) Other Gastrointestinal History: iinguinal hernia Genitourinary History: Reports: Prostate Disorder, Retention, Urinary, Urinary Incontinence, Other (See Below) Other Genitourinary History: bladder cancer with radiation Musculoskeletal History: Reports: Arthritis, Back Pain, Chronic, Fracture, Neck Pain, Chronic Psychiatric History: Reports: Depression Endocrine/Metabolic History: Reports: Hypothyroidism Hematologic History: Reports: Anemia, Blood Transfusion(s), Iron Deficiency Oncologic (Cancer) History: Reports: Bladder Other Oncologic History: radiation for bladder cancer Dermatologic History: Reports: Other (See Below) Other Dermatologic History: sores all over body - Infectious Disease History Infectious Disease History: Reports: MRSA - Past Surgical History HEENT Surgical History: Reports: Cataract Surgery GI Surgical History: Reports: Appendectomy, Hernia, Inguinal Male Surgical History: Reports: TURBT-Transurethral Resection of Bladder Tumor Musculoskeletal Surgical History: Reports: Knee Replacement, Other (See Below) Social & Family History - Family History Family Medical History: Unobtainable HEENT: Reports: None Cardiac: Reports: Aneurysm, Other (See Below) Respiratory: Reports: None GI: Reports: None : Reports: None OBGYN: Reports: None Musculoskeletal: Reports: None Neurological: Reports: None Psychiatric: Reports: None Endocrine/Metabolic: Reports: Diabetes, type II Hematologic: Reports: None Immunologic: Reports: None Dermatologic: Reports: None Oncologic: Reports: Bone (Father bone CA) - Caffeine Use Caffeine Use: Reports: Coffee Caffeine Use Comment: uses coffee throughout day ED ROS GENERAL - Review of Systems Review Of Systems: See Below Constitutional: Denies: Fever, Chills HEENT: Reports: No Symptoms Respiratory: Reports: Shortness of Breath, Cough Cardiovascular: Reports: Other (tight across his chest). Denies: Syncope GI/Abdominal: Reports: No Symptoms : Reports: No Symptoms Musculoskeletal: Reports: No Symptoms Skin: Reports: No Symptoms Neurological: Denies: Confusion, Dizziness, Headache, Seizure, Syncope, Trouble Speaking, Weakness, Change in Speech Psychiatric: Denies: Agitation, Anxiety, Confusion ED EXAM, GENERAL - Physical Exam Exam: See Below Exam Limited By: Respiratory Distress General Appearance: Alert, Moderate Distress (respiratory), Cachetic Eye Exam: Bilateral Eye: EOMI, Normal Inspection, PERRL Ears: Normal External Exam, Hearing Grossly Normal Nose: Normal Inspection, No Blood Throat/Mouth: Normal Inspection, Normal Lips, Normal Voice, No Airway Compromise Head: Atraumatic, Normocephalic Neck: Normal Inspection, Full Range of Motion Respiratory/Chest: Respiratory Distress, Decreased Breath Sounds (nearly absent) , Accessory Muscle Use, Prolonged Expiration (and inspiration), Other (barrel chest). No: Crackles, Rales, Rhonchi, Wheezing, Stridor Cardiovascular: Regular Rate, Rhythm, No Edema, No Gallop, No Murmur, No Rub Peripheral Pulses: 2+: Carotid (L), Carotid (R), Radial (L), Radial (R), Posterior Tibial (L), Posterior Tibial (R) GI/Abdominal: No Distention Extremities: Normal Range of Motion, No Pedal Edema Neurological: Alert, Oriented, Normal Cognition, No Motor/Sensory Deficits Psychiatric: Normal Affect, Normal Mood Skin Exam: Warm, Dry, Intact, Normal Color, No Rash Course - Vital Signs Last Recorded V/S: Last Vital Signs Temp 100.2 F 03/23/18 04:10 Pulse 74 03/23/18 04:50 Resp 22 H 03/23/18 04:50 BP 88/50 L 03/23/18 04:50 Pulse Ox 96 03/23/18 04:50 - Orders/Labs/Meds Orders: Active Orders 24 hr Category Date Time Status Patient Status Manage Transfer [TRANSFER] Routine ADT 03/23/18 05:34 Ordered Patient Status [ADT] Routine ADT 03/23/18 05:32 Ordered EKG Documentation Completion [RC] ASDIRECTED Care 03/23/18 04:26 Active Chest 2V [CR] Stat Exams 03/23/18 04:25 Taken EKG 12 Lead [EK] Routine Ther 03/23/18 04:25 Ordered Labs: Laboratory Tests 03/23/18 03/23/18 03/23/18 Range/Units 04:25 04:25 04:45 WBC 7.7 (5.0-10.0) 10^3/uL RBC 3.31 L (4.50-6.00) 10^6/uL Hgb 10.2 L (13.0-17.0) g/dL Hct 30.2 L (40.0-52.0) % MCV 91.1 D (82.0-92.0) fL MCH 30.7 (27.0-31.0) pg MCHC 33.7 (32.0-36.0) g/dL RDW 12.6 (11.5-14.5) % Plt Count 164 D (150-300) 10^3/uL MPV 8.3 (7.4-10.4) fL Neut % (Auto) 79.4 H (50.0-70.0) % Lymph % (Auto) 5.7 L (20.0-40.0) % [place] % (Auto) 11.4 H (2.0-8.0) % Eos % (Auto) 3.2 H (1.0-3.0) % Baso % (Auto) 0.3 (0.0-1.0) % Neut # (Auto) 6.2 (2.5-7.0) 10^3/uL Lymph # (Auto) 0.4 L (1.0-4.0) 10^3/uL [place] # (Auto) 0.9 H (0.1-0.8) 10^3/uL Eos # (Auto) 0.2 (0.1-0.3) 10^3/uL Baso # (Auto) 0.0 (0.0-0.1) 10^3/uL Sodium 137 (136-145) mmol/L Potassium 4.4 (3.3-5.3) mmol/L Chloride 102 (98-115) mmol/L Carbon Dioxide 29.0 (21.0-32.0) mmol/L BUN 16 (6-25) mg/dL Creatinine 1.06 (0.51-1.17) mg/dL Est Cr Clr Drug Dosing 41.97 mL/min Estimated GFR (MDRD) > 60 mL/min Glucose 105 (70-110) mg/dL Lactic Acid 1.7 (0.4-2.0) mmol/L Calcium 8.8 (8.7-10.3) mg/dL Troponin I 0.04 (0.00-0.070) ng/mL Meds: Medications Discontinued Medications Generic Name Dose Route Start Last Admin Trade Name Carmine PRN Reason Stop Dose Admin Albuterol/Ipratropium Confirm 03/23/18 04:38 03/23/18 04:48 Duoneb 3.0-0.5 Mg/3 Ml Administered 03/23/18 04:39 3 ml Dose Administration 3 ml .ROUTE .STK-MED ONE Methylprednisolone Sodium Succinate 125 mg 03/23/18 05:31 Solu-Medrol IVPUSH 03/23/18 05:32 ONETIME ONE - Re-Assessments/Exams Free Text/Narrative Re-Assessment/Exam: 03/23/18 05:21 After DuoNeb there is significant improvement in air movement, still decreased but present. Auscultation reveals no crackles or rhonchi. 03/23/18 05:41 Labs okay. CXR and EKG good. Discussed case with DR. Roldan who accepted for admission. Patient okay with plan. Departure - Departure Time of Disposition: 05:41 Disposition: Admitted As Inpatient 64 Condition: Fair Clinical Impression: COPD with exacerbation - Discharge Information - My Orders Last 24 Hours: My Active Orders 03/23/18 04:25 Chest 2V [CR] Stat EKG 12 Lead [EK] Routine 03/23/18 04:26 EKG Documentation Completion [RC] ASDIRECTED 03/23/18 05:32 Patient Status [ADT] Routine 03/23/18 05:34 Patient Status Manage Transfer [TRANSFER] Routine - Assessment/Plan Last 24 Hours: My Active Orders 03/23/18 04:25 Chest 2V [CR] Stat EKG 12 Lead [EK] Routine 03/23/18 04:26 EKG Documentation Completion [RC] ASDIRECTED 03/23/18 05:32 Patient Status [ADT] Routine 03/23/18 05:34 Patient Status Manage Transfer [TRANSFER] Routine
[2018-03-23 05:23] LABS: CHLORIDE,CL 102 mmol/L (98-115); SODIUM,NA 137 mmol/L (136-145)
[2018-03-23] MEDS ORDERED: methylPREDNISolone Sodium Succinate 125 MG/2 ML SDV IVPUSH ONE (05:31)
[2018-03-23] MEDS ORDERED: Albuterol/Ipratropium 3.0-0.5 MG/3 ML Neb Soln INH PRN (06:51)
[2018-03-23] MEDS ORDERED: Acetaminophen 500 MG Tab PO PRN (06:51)
[2018-03-23] MEDS ORDERED: Albuterol/Ipratropium 3.0-0.5 MG/3 ML Neb Soln NEB PRN (06:51)
[2018-03-23] MEDS: Levothyroxine 100 MCG Tab PO SCH (07:48)
[2018-03-23] MEDS: Omeprazole 20 MG Cap.CR PO SCH (07:48)
[2018-03-23] MEDS ORDERED: Cephalexin 250 MG Cap PO SCH (09:00)
[2018-03-23] MEDS ORDERED: Apixaban 5 MG Tab PO SCH ×2 (09:00→10:40)
--- NOTE | 2018-03-23 09:30 | PCM.HP ---
H&P History of Present Illness - General Date of Service: 03/23/18 Admit Problem/Dx: Admission Diagnosis/Problem Admission Diagnosis/Problem Chronic obstructive pulmonary disease with acute exacerbation Source of Information: Patient, Old Records, Provider, RN History Limitations: Reports: No Limitations - History of Present Illness Initial Comments - Free Text/Narative: This 72-year-old gentleman who is a resident of [facility] in [facility] was admitted through the ED due to shortness of breath and chest tightness. Patient stated he has had a chronic cough however seem to be worsening through the night last night exacerbation of his shortness of breath. He does have long-standing COPD a [id number] history of smoker currently smoking 1.5 seem as per day. He is on nebulized albuterol at home with nighttime O2 at 2 L/m. - Related Data Allergies/Adverse Reactions: Allergies Allergy/AdvReac Type Severity Reaction Status Date / Time No Known Drug Allergies Allergy Cannot Verified 03/23/18 07:48 Remember Home Medications: Home Meds Albuterol/Ipratropium [DuoNeb 3.0-0.5 MG/3 ML] 3 ml INH Q4H PRN 07/27/16 [ History] Ferrous Gluconate 324 mg PO DAILY 07/27/16 [History] Multivitamin [Daily Multiple Vitamin] 1 tab PO DAILY 07/27/16 [History] Omeprazole 40 mg PO ACBREAKFAST 07/27/16 [History] Oxybutynin Chloride [Ditropan Xl] 15 mg PO DAILY 07/27/16 [History] Sertraline [Zoloft] 200 mg PO DAILY 07/27/16 [History] Tamsulosin [Flomax] 0.4 mg PO DAILY 07/27/16 [History] Metoprolol Tartrate 12.5 mg PO BID 08/14/16 [History] Mupirocin Oint [Bactroban Oint] 22 gm TOP TID 08/14/16 [History] atorvaSTATin [Lipitor] 20 mg PO BEDTIME 08/14/16 [History] Acetaminophen 1,000 mg PO QID PRN 12/16/16 [History] Sennosides/Docusate Sodium [Sennosides-Docusate Sodium] 1 each PO BID 12/16/16 [ History] Triamcinolone Acetonide [Triamcinolone Acetonide 0.1% Oint] 15 gm TOP DAILY [History] Loratadine 10 mg PO DAILY 01/22/17 [History] Apixaban [Eliquis] 2.5 mg PO BID 03/23/18 [History] Aspirin 81 mg PO DAILY 03/23/18 [History] Calcium Carbonate [Tums Extra Strength] 1,500 mg PO Q4HR PRN 03/23/18 [History] Dicyclomine HCl [Bentyl] 10 mg PO QID 03/23/18 [History] Levothyroxine 87.5 mcg PO ACBRK 03/23/18 [History] Mirtazapine 45 mg PO BEDTIME 03/23/18 [History] Sodium Chloride 1 gm PO TID 03/23/18 [History] Past Medical History HEENT History: Reports: Cataract, Impaired Vision Cardiovascular History: Reports: Blood Clots/VTE/DVT, Heart Murmur Respiratory History: Reports: COPD, Other (See Below) Other Respiratory History: Home oxygen. Gastrointestinal History: Reports: GERD, Hiatal Hernia, Other (See Below) Other Gastrointestinal History: inguinal hernia Genitourinary History: Reports: Prostate Disorder, Retention, Urinary, Urinary Incontinence, Other (See Below) Other Genitourinary History: bladder cancer with radiation, pt states he has no control over bladder. Musculoskeletal History: Reports: Arthritis, Back Pain, Chronic, Fracture, Neck Pain, Chronic Psychiatric History: Reports: Depression Endocrine/Metabolic History: Reports: Hypothyroidism Hematologic History: Reports: Anemia, Blood Transfusion(s), Iron Deficiency Oncologic (Cancer) History: Reports: Bladder Other Oncologic History: radiation for bladder cancer Dermatologic History: Reports: Other (See Below) Other Dermatologic History: sores all over body - Infectious Disease History Infectious Disease History: Reports: MRSA - Past Surgical History HEENT Surgical History: Reports: Cataract Surgery Cardiovascular Surgical History: Reports: None Respiratory Surgical History: Reports: None GI Surgical History: Reports: Appendectomy, Hernia, Inguinal Male Surgical History: Reports: TURBT-Transurethral Resection of Bladder Tumor Musculoskeletal Surgical History: Reports: Knee Replacement, Other (See Below) Dermatological Surgical History: Reports: None Social & Family History - Family History HEENT: Reports: None Cardiac: Reports: Aneurysm, Other (See Below) Respiratory: Reports: None GI: Reports: None : Reports: None OBGYN: Reports: None Musculoskeletal: Reports: None Neurological: Reports: None Psychiatric: Reports: None Endocrine/Metabolic: Reports: Diabetes, type II Hematologic: Reports: None Immunologic: Reports: None Dermatologic: Reports: None Oncologic: Reports: Bone - Caffeine Use Caffeine Use: Reports: Coffee Caffeine Use Comment: uses coffee throughout day H&P Review of Systems - Review of Systems: Review Of Systems: See Below General: Reports: Malaise, Weakness, Decreased Appetite, Weight Loss. Denies: Fever, Chills, Night Sweats, Diaphoresis, Weight Gain HEENT: Reports: Rhinitis, Vertigo. Denies: Hearing Changes, Sore Throat, Visual Changes Pulmonary: Reports: Shortness of Breath, Cough, Sputum (scant sputum) Gastrointestinal: Reports: Anorexia. Denies: Abdominal Pain, Bloody Stool, Constipation, Diarrhea, Difficulty Swallowing, Distension, Flatus, Hematemesis, Nausea, Vomiting Genitourinary: Reports: Incontinence (1 yr hx of bladder radiation) Musculoskeletal: Reports: Joint Swelling Skin: Reports: Other (multiple open skins area to back) Psychiatric: Denies: Confusion, Depression, Mood Lability, Anxiety, Agitation Exam - Exam Exam: See Below - Vital Signs Vital Signs: Last Vital Signs Temp 98.6 F 03/23/18 05:50 Pulse 67 03/23/18 05:50 Resp 18 03/23/18 05:50 BP 104/52 L 03/23/18 05:50 Pulse Ox 95 03/23/18 08:25 Weight: 102 lb 8 oz - Exam Quality Assessment: Supplemental Oxygen, Skin Breakdown General: Alert, Oriented, Cooperative. No: Mild Distress HEENT: Conjunctiva Clear, EOMI, Hearing Intact, Mucosa Moist & [place], Nares Patent Neck: Supple, Trachea Midline, 2 Lungs: Decreased Breath Sounds. No: Rales, Rhonchi, Rub, Wheezing Cardiovascular: Regular Rate, Regular Rhythm GI/Abdominal Exam: Soft, Non-Tender (Male) Exam: Deferred Rectal (Males) Exam: Deferred Back Exam: No: CVA Tenderness (L), CVA Tenderness (R) Extremities: No Pedal Edema. No: Pedal Edema Peripheral Pulses: 0: Radial (R), 2+: Radial (L) Skin: Wound (multiple open skins area to back size ranging .5-1.5cm superficial , dry, pressure ulcers. ) Neurological: Cranial Nerves Intact, Reflexes Equal Bilateral Neuro Extensive - Mental Status: Alert, Oriented x3, Normal Mood/Affect, Normal Cognition Neuro Extensive - Motor, Sensory, Reflexes: CN II-XII Intact, Normal Gait, Normal Reflexes Psychiatric: Alert, Normal Affect, Normal Mood - Patient Data Lab Results Last 24 hrs: Laboratory Results - last 24 hr 03/23/18 03/23/18 03/23/18 Range/Units 04:25 04:25 04:45 WBC 7.7 (5.0-10.0) 10^3/uL RBC 3.31 L (4.50-6.00) 10^6/uL Hgb 10.2 L (13.0-17.0) g/dL Hct 30.2 L (40.0-52.0) % MCV 91.1 D (82.0-92.0) fL MCH 30.7 (27.0-31.0) pg MCHC 33.7 (32.0-36.0) g/dL RDW 12.6 (11.5-14.5) % Plt Count 164 D (150-300) 10^3/uL MPV 8.3 (7.4-10.4) fL Neut % (Auto) 79.4 H (50.0-70.0) % Lymph % (Auto) 5.7 L (20.0-40.0) % [place] % (Auto) 11.4 H (2.0-8.0) % Eos % (Auto) 3.2 H (1.0-3.0) % Baso % (Auto) 0.3 (0.0-1.0) % Neut # (Auto) 6.2 (2.5-7.0) 10^3/uL Lymph # (Auto) 0.4 L (1.0-4.0) 10^3/uL [place] # (Auto) 0.9 H (0.1-0.8) 10^3/uL Eos # (Auto) 0.2 (0.1-0.3) 10^3/uL Baso # (Auto) 0.0 (0.0-0.1) 10^3/uL Sodium 137 (136-145) mmol/L Potassium 4.4 (3.3-5.3) mmol/L Chloride 102 (98-115) mmol/L Carbon Dioxide 29.0 (21.0-32.0) mmol/L BUN 16 (6-25) mg/dL Creatinine 1.06 (0.51-1.17) mg/dL Est Cr Clr Drug Dosing 41.97 mL/min Estimated GFR (MDRD) > 60 mL/min Glucose 105 (70-110) mg/dL Lactic Acid 1.7 (0.4-2.0) mmol/L Calcium 8.8 (8.7-10.3) mg/dL Troponin I 0.04 (0.00-0.070) ng/mL Result Diagrams: 03/23/18 04:25 03/23/18 04:25 Problem List Initiated/Reviewed/Updated: Yes Orders Last 24hrs: Active Orders 24 hr Category Date Time Status Oxygen Therapy [RC] DAILY Care 03/23/18 06:51 Active RT Aerosol Therapy [RC] .PRN Care 03/23/18 06:51 Active Up With Assistance [RC] DAILY Care 03/23/18 06:51 Active Vital Signs [RC] 0300,0700,1100,1500,1900,2300 Care 03/23/18 06:51 Active Regular Diet [DIET] Diet 03/23/18 Breakfast Active Chest 2V [CR] Stat Exams 03/23/18 04:25 Taken Acetaminophen [Tylenol Extra Strength] Med 03/23/18 06:51 Active 1,000 mg PO QID PRN Albuterol/Ipratropium [DuoNeb 3.0-0.5 MG/3 ML] Med 03/23/18 06:51 Active 3 ml NEB Q4H PRN Apixaban [Eliquis] Med 03/23/18 09:00 Active 5 mg PO BID Cephalexin [Keflex] Med 03/23/18 09:00 Active 500 mg PO TID Docusate Sodium/Sennosides [Senna Plus] Med 03/23/18 09:00 Active 1 tab PO BID FA/Lycopene/Lut/MV,Ca,Iron,Min [Centrum] Med 03/23/18 21:00 Active 1 tab PO BEDTIME Ferrous Sulfate Med 03/23/18 21:00 Active 325 mg PO BEDTIME Levothyroxine [Synthroid] Med 03/23/18 07:30 Active 200 mcg PO ACBREAKFAST Loratadine [Claritin] Med 03/23/18 09:00 Active 10 mg PO DAILY Metoprolol Tartrate [Lopressor] Med 03/23/18 09:00 Active 12.5 mg PO BID Mirtazapine [Remeron] Med 03/23/18 21:00 Active 45 mg PO BEDTIME Mupirocin Oint [Bactroban Oint] Med 03/23/18 09:00 Active 0 gm TOP TID Omeprazole Med 03/23/18 07:30 Active 40 mg PO ACBREAKFAST Oxybutynin [Oxybutynin ER] Med 03/23/18 09:00 Active 15 mg PO DAILY Sertraline [Zoloft] Med 03/23/18 09:00 Active 200 mg PO DAILY Tamsulosin [Flomax] Med 03/23/18 09:00 Active 0.4 mg PO DAILY Triamcinolone Acetonide [Triamcinolone Acetonide 0.1% Med 03/23/18 09:00 Active Oint] 0 gm TOP DAILY atorvaSTATin [Lipitor] Med 03/23/18 21:00 Active 20 mg PO BEDTIME EKG 12 Lead [EK] Routine Ther 03/23/18 04:25 Stop Req Medication Orders Acetaminophen (Tylenol Extra Strength) 1,000 mg PO QID PRN PRN Reason: Pain Albuterol/Ipratropium (Duoneb 3.0-0.5 Mg/3 Ml) 3 ml NEB Q4H PRN PRN Reason: Shortness Of Breath/wheezing Apixaban (Eliquis) 5 mg PO BID [facility] Atorvastatin Calcium (Lipitor) 20 mg PO BEDTIME [facility] Cephalexin (Keflex) 500 mg PO TID [facility] Ferrous Sulfate (Ferrous Sulfate) 325 mg PO BEDTIME [facility] Levothyroxine Sodium (Synthroid) 200 mcg PO ACBREAKFAST [facility] Last Admin: 03/23/18 07:48 Dose: 200 mcg Loratadine (Claritin) 10 mg PO DAILY [facility] Metoprolol Tartrate (Lopressor) 12.5 mg PO BID [facility] Mirtazapine (Remeron) 45 mg PO BEDTIME [facility] Multivitamins/Minerals (Centrum) 1 tab PO BEDTIME [facility] Mupirocin (Bactroban Oint) 0 gm TOP TID [facility] Omeprazole (Omeprazole) 40 mg PO ACBREAKFAST [facility] Last Admin: 03/23/18 07:48 Dose: 40 mg Oxybutynin Chloride (Oxybutynin Er) 15 mg PO DAILY [facility] Senna/Docusate Sodium (Senna Plus) 1 tab PO BID [facility] Sertraline HCl (Zoloft) 200 mg PO DAILY [facility] Tamsulosin HCl (Flomax) 0.4 mg PO DAILY [facility] Triamcinolone Acetonide (Triamcinolone Acetonide 0.1% Oint) 0 gm TOP DAILY [facility] Assessment/Plan Comment:: HISTORY OF PRESENT ILLNESS This 72-year-old gentleman who is a resident of [facility] in [facility] was admitted through the ED due to shortness of breath and chest tightness. Patient stated he has had a chronic cough however seem to be worsening through the night last night exacerbation of his shortness of breath. He does have long-standing COPD a [id number] history of smoker currently smoking 1.5 seem as per day. He is on nebulized albuterol at home with nighttime O2 at 2 L/m. Pertinent ED findings Normal troponin Electrolyte normal VSS, afebrile Improve respiratory status after nebulized LINDA/FRANCISCA Chest x-ray, no pathology Methylprednisone 125 mg IVP 1 ____ Upon admission to the floor from the ED the patient required ongoing assessment , intervention, medication reconciliation further workup and labs were required. Primary impression Chronic obstructive pulmonary disease, acute exacerbation, mild, much improved , continue with LINDA/FRANCISCA, low-dose O2, Add LABA Neutrophilia, favorable Monophilia--lagging Cachectic, weight loss, on maximum dose Remeron, will add Megace, with known risk of thrombophilia d/t progestin production, on factor Xa inhibitor for hx of PE, will monitor, risk versus benefit Altered skin integrity, protein malnutrition, skin breakdown, wound cx. Bacroban , MVI, add boost for improve nutrition, appetite stimulant, offloading Secondary impression Weight loss, profound, continue with Remeron, add Megace, Anemia, normocytic, normochromic, no anisocytosis, guaiac stool, (positive January 2017) reviewed chart, currently on factor Xa inhibitor and aspirin, will need anemia workup, consider GI pathology likely will need colonoscopy--especially in light of profound weight loss. Currently on PPI, rx to ensure proper admin History of malignant neoplasm prostate, Depression, max dose Remeron, SSRI, ongoing weight loss Hypothyroidism, recent TSH 3.79, will reassess LUTS/neurogenic bladder, urinary incontinence, radiation induced, on oxybutynin, HTN, BID BB HLD, statin therapy, Tobacco dependence, down to 1.5 cigarettes per day, 30 Олег/yr hx. Code Status, visited with patient, he desires to be full code Overall plan, add LABA, anemia workup, nutritional consultation, add boost, add Megace, nutritional support with c/s, TSH, no further corticosteroids needed, discontinue telemetry. Anticipate discharge likely within 24-48 hours.
[2018-03-23] MEDS: Mupirocin Oint 22 GM Tube TOP SCH ×3 (10:14→20:19)
[2018-03-23] MEDS: Tamsulosin 0.4 MG Cap.ER PO SCH (10:15)
[2018-03-23] MEDS: Loratadine 10 MG Tab PO SCH (10:15)
[2018-03-23] MEDS: Sertraline 50 MG Tab PO SCH (10:16)
[2018-03-23] MEDS ORDERED: Calcium Carbonate 500 MG Tab.Chew PO PRN (10:49)
[2018-03-23] MEDS: Metoprolol Tartrate 25 MG Tab PO SCH ×2 (10:51→20:27)
[2018-03-23] MEDS: Oxybutynin 5 MG Tab.ER PO SCH (10:52)
[2018-03-23] MEDS: Triamcinolone Acetonide 0.1% Oint 15 GM Tube TOP SCH (10:53)
[2018-03-23] MEDS ORDERED: Apixaban 2.5 MG Tab PO SCH (11:20)
[2018-03-23] MEDS: Apixaban 5 MG Tab PO SCH ×2 (11:55→20:20)
[2018-03-23] MEDS: Arformoterol 15 MCG/2 ML Neb Soln INH SCH ×2 (12:26→20:18)
[2018-03-23] MEDS: Dicyclomine 10 MG Cap PO SCH ×3 (13:58→20:20)
[2018-03-23] MEDS: Sodium Chloride 1 GM Tab PO SCH ×2 (13:58→20:24)
[2018-03-23] MEDS: Aspirin 81 MG Tab.Chew PO SCH (13:59)
[2018-03-23] MEDS: Megestrol Susp 40 MG/ML 10 ML UD Cup PO SCH (13:59)
[2018-03-23] MEDS ORDERED: Mirtazapine 15 MG Tab PO SCH (21:00)
[2018-03-23] MEDS ORDERED: atorvaSTATin 10 MG Tab PO SCH (21:00)
[2018-03-23] MEDS ORDERED: Ferrous Sulfate 325 MG Tab PO SCH (21:00)
[2018-03-23] MEDS ORDERED: Multivitamins with Minerals/Iron/Folic Acid/Lycopene Tab PO SCH (21:00)
[2018-03-23] MEDS ORDERED: Non-Formulary Medication 1 Each (Mirtazapine [Mirtazapine] 45 MG) PO SCH (21:00)
[2018-03-24 07:12] VITALS: BP 132/74
[2018-03-24] MEDS: Arformoterol 15 MCG/2 ML Neb Soln INH SCH (07:30)
[2018-03-24] MEDS: Omeprazole 20 MG Cap.CR PO SCH (07:54)
[2018-03-24] MEDS: Levothyroxine 100 MCG Tab PO SCH (07:55)
[2018-03-24] MEDS: Megestrol Susp 40 MG/ML 10 ML UD Cup PO SCH (08:06)
[2018-03-24] MEDS: Mupirocin Oint 22 GM Tube TOP SCH (08:06)
[2018-03-24] MEDS: Loratadine 10 MG Tab PO SCH (08:07)
[2018-03-24] MEDS: Aspirin 81 MG Tab.Chew PO SCH (08:07)
[2018-03-24] MEDS: Oxybutynin 5 MG Tab.ER PO SCH (08:07)
[2018-03-24] MEDS: Sertraline 50 MG Tab PO SCH (08:07)
[2018-03-24] MEDS: Apixaban 5 MG Tab PO SCH (08:07)
[2018-03-24] MEDS: Tamsulosin 0.4 MG Cap.ER PO SCH (08:07)
[2018-03-24] MEDS: Dicyclomine 10 MG Cap PO SCH ×2 (08:07→14:49)
[2018-03-24] MEDS: Metoprolol Tartrate 25 MG Tab PO SCH (08:08)
[2018-03-24] MEDS: Triamcinolone Acetonide 0.1% Oint 15 GM Tube TOP SCH (08:08)
[2018-03-24] MEDS: Sodium Chloride 1 GM Tab PO SCH (08:08)
--- NOTE | 2018-03-24 09:42 | PCM.DCSUM1 ---
Discharge Summary - Hospital Course Brief History: This is a 72 year old male who presented to the ED due to chest tightness and shortness of breath. The patient reports a chronic cough that had worsened during the night. He has a long-standing history of COPD with a 30 pack year history and is currently smoking 1.5 ppd. He is on nebulizers at home with nighttime oxygen at 2 liters per nasal cannula. He is a resident of [facility]. He was admitted for further treatment and monitoring. Diagnosis: Stroke: No - Discharge Data Discharge Date: 03/24/18 Discharge Disposition: DC/Tfer to Other 70 Condition: Good - Patient Summary/Data Consults: Consultations 03/23/18 11:10 Nutrition Reassessment/Plan, Adult [Consult to Hitting Coach] [CONS] Routine - Patient Instructions Diet: Regular Diet as Tolerated Activity: As Tolerated Driving: Do Not Drive Showering/Bathing: May Shower Notify Provider of: Fever (increased shortness of breath, chest pain or tightness, productive cough) - Discharge Plan Prescriptions/Med Rec: Arformoterol [Brovana] 15 mcg INH BIDRT #60 neb Megestrol [Megace 40 MG/ML Susp] 400 mg PO DAILY #30 cup Home Medications: Home Meds Albuterol/Ipratropium [DuoNeb 3.0-0.5 MG/3 ML] 3 ml INH Q4H PRN 07/27/16 [ History] Ferrous Gluconate 324 mg PO DAILY 07/27/16 [History] Multivitamin [Daily Multiple Vitamin] 1 tab PO DAILY 07/27/16 [History] Omeprazole 40 mg PO ACBREAKFAST 07/27/16 [History] Oxybutynin Chloride [Ditropan Xl] 15 mg PO DAILY 07/27/16 [History] Sertraline [Zoloft] 200 mg PO DAILY 07/27/16 [History] Tamsulosin [Flomax] 0.4 mg PO DAILY 07/27/16 [History] Metoprolol Tartrate 12.5 mg PO BID 08/14/16 [History] Mupirocin Oint [Bactroban Oint] 22 gm TOP TID 08/14/16 [History] atorvaSTATin [Lipitor] 20 mg PO BEDTIME 08/14/16 [History] Acetaminophen 1,000 mg PO QID PRN 12/16/16 [History] Sennosides/Docusate Sodium [Sennosides-Docusate Sodium] 1 each PO BID 12/16/16 [ History] Triamcinolone Acetonide [Triamcinolone Acetonide 0.1% Oint] 15 gm TOP DAILY [History] Loratadine 10 mg PO DAILY 01/22/17 [History] Apixaban [Eliquis] 2.5 mg PO BID 03/23/18 [History] Aspirin 81 mg PO DAILY 03/23/18 [History] Calcium Carbonate [Tums Extra Strength] 1,500 mg PO Q4HR PRN 03/23/18 [History] Dicyclomine HCl [Bentyl] 10 mg PO QID 03/23/18 [History] Levothyroxine 87.5 mcg PO ACBRK 03/23/18 [History] Mirtazapine 45 mg PO BEDTIME 03/23/18 [History] Sodium Chloride 1 gm PO TID 03/23/18 [History] Arformoterol [Brovana] 15 mcg INH BIDRT #60 neb 03/24/18 [Rx] Megestrol [Megace 40 MG/ML Susp] 400 mg PO DAILY #30 cup 03/24/18 [Rx] Referrals: John Carrasquillo PA-C [Ordering Only Provider] - (Follow-up in the [facility] in 1 week) - Discharge Summary/Plan Comment DC Time >30 min.: No Discharge Summary/Plan Comment: Date of admission: 03/23/18 Date of discharge: 03/24/18 Admitting diagnosis: Primary: COPD exacerbation, Neutrophilia, normocytic normochromic anemia Secondary: Weight loss with cachetic appearance, altered skin integrity, history of prostate cancer, depression, hypothyroidism, LUTS/neurogenic bladder with urinary incontinence, HTN, HLD, tobacco dependence Final diagnosis: Primary: COPD exacerbation, resolving; Neutrophilia, mild; normocytic normochromic anemia Secondary: Weight loss with cachetic appearance, altered skin integrity, history of prostate cancer, depression, hypothyroidism, LUTS/neurogenic bladder with urinary incontinence, HTN, HLD, tobacco dependence Procedures performed: None Hospital Course: The patient had an uneventful hospital course. The patient remained afebrile throughout his stay with stable vital signs. The chest x-ray showed no acute process. Electrolytes were stable. The troponin level was negative x 2. He was monitored with telemetry for a short time and no abnormalities were noted. He was given a 1 time dose of 125 mg IV solumedrol with significant improvement in symptoms. The patient received DuoNebs, low dose oxygen via nasal cannula, and had the addition of Brovana BID (LABA) due to the acute exacerbation of chronic bronchitis. The patient has had profound weight loss and appears cachetic. He is on high dose remeron and had the addition of megace added while in the hospital. He received a nutritional consult. Patient found to be anemic with hemoglobin of 10.2, absolute retic count of 0.011 (low), ferritin normal at 60, iron low at 13 with TIBC 252, TSH 2.83. Patient will require further anemia work up with stool for occult blood and possible colonoscopy especially in the setting of weight loss. He is on a PPI and will continue with this. Patient had a sore to his lower back (POA) that was cultured and this is pending. Gram stain revealed no organisms. New medications on discharge: -Brovana 15 mcg inhaled BID -Megace 400 mg po daily New changes to home medications on discharge: None Regular home medications on discharge: -Levothyroxine 87.5 mcg po daily -Mirtazapine 45 mg po at HS -Eliquis 2.5 mg po BID -Calcium Carbonate 1500 mg po every 4 hours PRN -Aspirin 81 mg po daily -Sodium Chloride 1 gm po TID -Bentyl 10 mg po QID -Triamcinolone 0.1% cream top daily -Bactroban top to affected area TID -Tylenol 1000 mg po QID PRN -Senna 1 tab po BID -Oxybutynin 15 mg po daily -Sertraline 200 mg po daily -Multivitamin 1 tab po daily -Loratadine 10 mg po daily -Ferrous Gluconate 324 mg po daily -Omeprazole 40 mg po daily -DuoNeb every 4 hours PRN -Lopressor 12.5 mg po BID -Lipitor 20 mg po at HS -Flomax 0.4 mg po daily Condition, Treatment & Final Disposition: The patient was discharged in stable condition. He will follow up with his PCP, John ANGELES, in 1 week. Considerations at follow-up would include further work up of anemia and profound weight loss. Also, follow-up on the culture report from his back wound. - General Info Date of Service: 03/24/18 Subjective Update: Patient reports he is feeling well and would like to go home. Functional Status: Reports: Pain Controlled, Tolerating Diet, Ambulating. Denies: New Symptoms - Review of Systems General: Denies: Fever, Chills HEENT: Denies: Headaches, Sinus Congestion, Sore Throat Pulmonary: Reports: Cough (dry, nonproductive). Denies: Shortness of Breath, Sputum Cardiovascular: Reports: Edema (RLE, chronic after fusion). Denies: Chest Pain Gastrointestinal: Denies: Abdominal Pain, Constipation, Decreased Appetite, Diarrhea, Nausea, Vomiting Genitourinary: Reports: No Symptoms, Incontinence (chronic) Neurological: Denies: Dizziness, Headache Psychiatric: Reports: No Symptoms - Patient Data Vitals - Most Recent: Last Vital Signs Temp 98.0 F 03/24/18 07:00 Pulse 78 03/24/18 08:08 Resp 20 03/24/18 07:00 BP 132/74 03/24/18 08:08 Pulse Ox 96 03/24/18 07:30 Weight - Most Recent: 102 lb 8 oz I&O - Last 24 hours: Intake & Output 03/23/18 03/24/18 03/24/18 22:59 06:59 14:59 Intake Total 920 290 Balance 920 290 Lab Results - Last 24 hrs: Laboratory Results - last 24 hr 03/23/18 03/23/18 03/23/18 Range/Units 04:25 04:25 04:25 Absolute Retic 0.0111 L (0.0200-0.1000) Percent Retic 0.3 (0.3-2.2) % Iron 13 L (50-150) ug/dL TIBC 252 L (261-478) ug/dL Unsaturated IBC 239 (155-355) ug/dL Transferrin % Sat 5.2 L (20.0-50.0) % Ferritin 60 (24-336) ng/mL Troponin I (0.00-0.070) ng/mL TSH, Ultra Sensitive 2.830 (0.340-4.820) uIU/mL 03/24/18 Range/Units 07:12 Absolute Retic (0.0200-0.1000) Percent Retic (0.3-2.2) % Iron (50-150) ug/dL TIBC (261-478) ug/dL Unsaturated IBC (155-355) ug/dL Transferrin % Sat (20.0-50.0) % Ferritin (24-336) ng/mL Troponin I < 0.04 (0.00-0.070) ng/mL TSH, Ultra Sensitive (0.340-4.820) uIU/mL Med Orders - Current: Current Medications Acetaminophen (Tylenol Extra Strength) 1,000 mg PO QID PRN PRN Reason: Pain Albuterol/Ipratropium (Duoneb 3.0-0.5 Mg/3 Ml) 3 ml NEB Q4H PRN PRN Reason: Shortness Of Breath/wheezing Last Admin: 03/23/18 11:08 Dose: 3 ml Apixaban (Eliquis) 2.5 mg PO BID [facility] Last Admin: 03/24/18 08:07 Dose: 2.5 mg Arformoterol Tartrate (Brovana) 15 mcg INH BIDRT [facility] Last Admin: 03/24/18 07:30 Dose: 15 mcg Aspirin (Aspirin) 81 mg PO DAILY [facility] Last Admin: 03/24/18 08:07 Dose: 81 mg Atorvastatin Calcium (Lipitor) 20 mg PO BEDTIME [facility] Last Admin: 03/23/18 20:21 Dose: 20 mg Calcium Carbonate/Glycine (Tums) 1,500 mg PO Q4H PRN PRN Reason: Heartburn Dicyclomine HCl (Bentyl) 10 mg PO QID [facility] Last Admin: 03/24/18 08:07 Dose: 10 mg Ferrous Sulfate (Ferrous Sulfate) 325 mg PO BEDTIME [facility] Last Admin: 03/23/18 20:21 Dose: 325 mg Levothyroxine Sodium (Synthroid) 200 mcg PO ACBREAKFAST [facility] Last Admin: 03/24/18 07:55 Dose: 200 mcg Loratadine (Claritin) 10 mg PO DAILY [facility] Last Admin: 03/24/18 08:07 Dose: 10 mg Megestrol Acetate (Megace 40 Mg/Ml Susp) 400 mg PO DAILY [facility] Last Admin: 03/24/18 08:06 Dose: 400 mg Metoprolol Tartrate (Lopressor) 12.5 mg PO BID [facility] Last Admin: 03/24/18 08:08 Dose: 12.5 mg Mirtazapine (Remeron) 45 mg PO BEDTIME [facility] Last Admin: 03/23/18 20:24 Dose: 45 mg Multivitamins/Minerals (Centrum) 1 tab PO BEDTIME [facility] Last Admin: 03/23/18 20:20 Dose: 1 tab Mupirocin (Bactroban Oint) 0 gm TOP TID [facility] Last Admin: 03/24/18 08:06 Dose: 1 applic Omeprazole (Omeprazole) 40 mg PO ACBREAKFAST [facility] Last Admin: 03/24/18 07:54 Dose: 40 mg Oxybutynin Chloride (Oxybutynin Er) 15 mg PO DAILY [facility] Last Admin: 03/24/18 08:07 Dose: 15 mg Senna/Docusate Sodium (Senna Plus) 1 tab PO BID [facility] Last Admin: 03/24/18 08:07 Dose: 1 tab Sertraline HCl (Zoloft) 200 mg PO DAILY [facility] Last Admin: 03/24/18 08:07 Dose: 200 mg Sodium Chloride (Sodium Chloride) 1 gm PO TID [facility] Last Admin: 03/24/18 08:08 Dose: 1 gm Tamsulosin HCl (Flomax) 0.4 mg PO DAILY [facility] Last Admin: 03/24/18 08:07 Dose: 0.4 mg Triamcinolone Acetonide (Triamcinolone Acetonide 0.1% Oint) 0 gm TOP DAILY [facility] Last Admin: 03/24/18 08:08 Dose: 1 applic Discontinued Medications Albuterol/Ipratropium (Duoneb 3.0-0.5 Mg/3 Ml) Confirm Administered Dose 3 ml .ROUTE .[facility] Stop: 03/23/18 04:39 Last Admin: 03/23/18 04:48 Dose: 3 ml Albuterol/Ipratropium (Duoneb 3.0-0.5 Mg/3 Ml) 3 ml INH Q4H PRN PRN Reason: Wheezing Apixaban (Eliquis) 5 mg PO BID [facility] Last Admin: 03/23/18 13:45 Dose: Not Given Apixaban (Eliquis) 2.5 mg PO BID [facility] Last Admin: 03/23/18 13:45 Dose: Not Given Apixaban (Eliquis) 2.5 mg PO BID [facility] Cephalexin (Keflex) 500 mg PO TID [facility] Last Admin: 03/23/18 10:15 Dose: 500 mg Methylprednisolone Sodium Succinate (Solu-Medrol) 125 mg IVPUSH ONETIME ONE Stop: 03/23/18 05:32 Last Admin: 03/23/18 05:51 Dose: 125 mg - Exam Quality Assessment: Reports: Supplemental Oxygen (94% on 1 liter of oxygen per nasal cannula). Denies: Urine Catheter, DVT Prophylaxis General: Reports: Alert, Oriented, Cooperative, No Acute Distress, Other ( Cachetic appearance) Lungs: Reports: Normal Respiratory Effort, Decreased Breath Sounds (throughout) . Denies: Crackles, Wheezing Cardiovascular: Reports: Regular Rate, Regular Rhythm, No Murmurs GI/Abdominal Exam: Normal Bowel Sounds, Soft, No Distention Extremities: Pedal Edema (trace edema to BLE) Skin: Reports: Warm, Dry Neurological: Reports: Normal Speech Psy/Mental Status: Reports: Alert, Normal Affect, Normal Mood
== END 2018-03-24 13:55 | disposition other institution (70) | DRG 192 ==
LOC: KA.ED 04:00 → KA.MS 06:00
PROVIDERS: ADMIT Physician Assistant Surgical; ATTEND Family Medicine
DX: J44.1 Chronic obstructive pulmonary disease with (acute) exacerbation (principal); D72.0 Genetic anomalies of leukocytes; D64.9 Anemia, unspecified; R01.1 Cardiac murmur, unspecified; R63.4 Abnormal weight loss; K44.9 Diaphragmatic hernia without obstruction or gangrene; Z85.51 Personal history of malignant neoplasm of bladder; L98.9 Disorder of the skin and subcutaneous tissue, unspecified; M54.9 Dorsalgia, unspecified; M54.2 Cervicalgia; M19.90 Unspecified osteoarthritis, unspecified site; E03.9 Hypothyroidism, unspecified; D50.9 Iron deficiency anemia, unspecified; N31.9 Neuromuscular dysfunction of bladder, unspecified; N39.498 Other specified urinary incontinence; G89.29 Other chronic pain; I10 Essential (primary) hypertension; E78.5 Hyperlipidemia, unspecified; K21.9 Gastro-esophageal reflux disease without esophagitis; F17.210 Nicotine dependence, cigarettes, uncomplicated; F32.9 Major depressive disorder, single episode, unspecified; Z85.46 Personal history of malignant neoplasm of prostate; Z79.899 Other long term (current) drug therapy; Z79.82 Long term (current) use of aspirin; Z86.718 Personal history of other venous thrombosis and embolism
CPT/HCPCS: 36415; 71046; 80048; 82728; 83540; 83550; 83605; 84443; 84484; 85025; 85045; 87070; 87205; 93005; 94640; 96374; 99283; 99285; A9270-GY; J2930